=== PATIENT | male | born 1990 | race Caucasian/White ===

== ENCOUNTER 2017-11-07 04:08 | Emergency (ER) | payer SELFPAY ==
[2017-11-07] MEDS ORDERED: Ketorolac Tromethamine 60 MG/2 ML VIAL ONE (04:43)
== END 2017-11-07 05:16 | disposition home or self-care (01) ==
LOC: NAV ERS 04:08
DX: J06.9 Acute upper respiratory infection, unspecified (principal); F17.210 Nicotine dependence, cigarettes, uncomplicated
CPT/HCPCS: 87804; 96372; J1885